=== PATIENT | male | born 1985 | race Caucasian/White ===

== ENCOUNTER → 2017-11-03 | Outpatient (CLI) | payer OTHER ==
[~2017-11-03] MED LIST: IOPAMIDOL (ISOVUE 370) 100 ML BTL IV ONE
== END ==
LOC: FIMAGING 11:45
PROVIDERS: ATTEND Surgery
DX: I87.9 Disorder of vein, unspecified (principal); Z86.718 Personal history of other venous thrombosis and embolism
CPT/HCPCS: Q9967

== ENCOUNTER 2017-12-12 12:00 | Inpatient (IN) | payer OTHER ==
--- NOTE | 2017-12-12 11:41 | PDHPUP ---
History & Physical Update H&P update statement: This history and physical update is based on an assessment of the patient which was completed after admission or registration (within 24 hours), but prior to the surgery/procedure. H&P update: H&P reviewed & patient examined, no change in patient's condition since H&P completed
[2017-12-12] MEDS ORDERED: LIDOCAINE 1% 2 ML INJ ID PRN (12:15)
[2017-12-12] MEDS ORDERED: LR 1,000 ML IV ONE (12:15)
[2017-12-12] MEDS ORDERED: MIDAZOLAM 2 MG/2 ML VIAL IVP ONE (13:37)
--- NOTE | 2017-12-12 13:39 | PDANEPAE ---
ANE History of Present Illness VATS, 1st rib resection ANE Past Medical History - Cardiovascular History Hx Hypertension: No Hx Arrhythmias: No Hx Chest Pain: No Hx Coronary Artery / Peripheral Vascular Disease: No Hx CHF / Valvular Disease: No Hx Palpitations: No Cardiovascular History Comment: DVT 09/2017 - Pulmonary History Hx COPD: No Hx Asthma/Reactive Airway Disease: No Hx Recent Upper Respiratory Infection: No Hx Oxygen in Use at Home: No Hx Sleep Apnea: No Sleep Apnea Screening Result - Last Documented: Negative - Neurologic History Hx Cerebrovascular Accident: No Hx Seizures: No Hx Dementia: No - Endocrine History Hx Diabetes: No - Renal History Hx Renal Disorders: No - Liver History Hx Hepatic Disorders: No - Neurological & Psychiatric Hx Hx Neurological and Psychiatric Disorders: No Neurological / Psychiatric History Comment: ANXIETY/INSOMNIA - Cancer History Hx Cancer: No - Congenital Disorder History Hx Congenital Disorders: No - GI History Hx Gastrointestinal Disorders: No Gastrointestinal History Comment: SL HIATAL HERNIA -MINOR HEARTBURN - Other Health History Other Health History: NEG - Chronic Pain History Chronic Pain: No - Surgical History Prior Surgeries: TONSILLECTOMY. VENOUS CATHETERIZATION ANE Review of Systems Review of systems is: negative Review of Systems: - Exercise capacity METS (RN): 5 METS ANE Patient History - Allergies Allergies/Adverse Reactions: No Known Allergies Allergy (Verified 10/03/17 13:33) - Home Medications Home medications: home medication list seen and reviewed Home Medications: Apixaban [Eliquis] 5 mg PO BID 11/24/17 [Last Taken 12/09/17] LORazepam [Ativan (*)] 0.5 mg PO DAILY PRN 11/24/17 [Last Taken 12/11/17] - NPO status NPO Since - Liquids (Date): 12/12/17 NPO Since - Liquids (Time): 08:00 NPO Since - Solids (Date): 12/11/17 NPO Since - Solids (Time): 22:00 - Anes Hx Anes Hx: no prior problems - Smoking Hx Smoking Status: Former smoker - Family Anes Hx Family Anes Hx: none Family Hx Anesthesia Complications: NEG ANE Labs/Vital Signs - Vital Signs Vital Signs: reviewed preoperatively; see RN documention for details Blood Pressure: 141/97 Heart Rate: 93 Respiratory Rate: 12 O2 Sat (%): 97 Height: 160.02 cm Weight: 76.204 kg ANE Physical Exam - Airway Neck exam: FROM Mallampati Score: Class 1 Mouth exam: normal dental/mouth exam - Pulmonary Pulmonary: no respiratory distress - Cardiovascular Cardiovascular: regular rate and rhythym - ASA Status ASA Status: II ANE Anesthesia Plan Anesthesia Plan: general endotracheal anesthesia Specialized Airway: double lumen tube
[2017-12-12] MEDS ORDERED: BUPIVACAINE/EPI 0.5% 30 ML SDV ONE (13:43)
[2017-12-12] MEDS ORDERED: TALC 3 GM INTRAPLEURAL VIAL ONE (13:44)
[2017-12-12] MEDS ORDERED: LIDOCAINE 2% 100 MG/5 ML SYR ONE (13:49)
[2017-12-12] MEDS ORDERED: ONDANSETRON 4 MG/2 ML VIAL ONE (13:49)
[2017-12-12] MEDS ORDERED: ROCURONIUM 50 MG/5 ML VIAL ONE ×2 (13:49→18:10)
[2017-12-12] MEDS ORDERED: DEXAMETHASONE 4 MG/ML VIAL ONE (13:49)
[2017-12-12] MEDS ORDERED: SUGAMMADEX SODIUM 200 MG/2 ML VIAL IVP ONE (13:49)
[2017-12-12] MEDS ORDERED: HYDROmorphONE/DILAUDID 2 MG/ML INJ ONE (13:50)
[2017-12-12] MEDS ORDERED: fentaNYL 100 MCG/2 ML INJ ONE ×2 (13:50→18:55)
[2017-12-12] MEDS ORDERED: PROPOFOL 200 MG/20 ML VIAL ONE (13:50)
--- NOTE | 2017-12-12 13:52 | POSTOPPROG ---
<Shira Sawyer - Last Filed: 12/12/17 13:49> Post Op Note Date of Operation: 12/12/17 Surgeon: Noam Stark Property Controller: Iftikhar James Anesthesiologist: Kelton Quintero Anesthesia: GET(General Endotracheal) Pre-op Diagnosis: Thoracic outlet syndrome Post-op Diagnosis: same Procedure: VATS first rib resection Inf/Abcess present in the surg proc area at time of surgery?: No EBL: Minimal Complications: no immediate Drains: Other (Right chest tube) <Noam Stark - Last Filed: 12/12/17 18:14> Post Op Note Date of Operation: 12/12/17 Surgeon: Noam Stark Procedure: right VATS first rib resection Drains: Other Specimen(s): rib
[2017-12-12] MEDS ORDERED: KETOROLAC 30 MG/1 ML SDV ONE (15:15)
[2017-12-12] MEDS ORDERED: ONDANSETRON 4 MG/2 ML VIAL IVP PRN (16:01)
[2017-12-12] MEDS ORDERED: oxyCODONE IR 5 MG TAB PO PRN (16:01)
[2017-12-12] MEDS ORDERED: MEPERIDINE 25 MG/0.5 ML AMP IVP PRN (16:01)
[2017-12-12] MEDS ORDERED: HYDROCODONE/APAP 5/325 TAB PO PRN (16:01)
[2017-12-12] MEDS ORDERED: HYDROmorphONE/DILAUDID 2 MG/ML INJ IVP PRN (16:01)
[2017-12-12] MEDS ORDERED: PROMETHAZINE HCL 25 MG/ML INJ IVP PRN (16:01)
[2017-12-12] MEDS ORDERED: ACETAMINOPHEN 500 MG TAB PO PRN (16:01)
[2017-12-12] MEDS ORDERED: fentaNYL 100 MCG/2 ML INJ IVP PRN (16:01)
[2017-12-12] MEDS ORDERED: NALOXONE HCL 0.4 MG/ML INJ IVP PRN (16:01)
[2017-12-12] MEDS ORDERED: DEXAMETHASONE 4 MG/ML VIAL IVP PRN (16:01)
--- NOTE | 2017-12-12 16:03 | POSTANESTH ---
Post Anesthetic Evaluation Cardiovascular Status: Normal, Stable, Similar to Pre-Op Cond Respiratory Status: Normal, Stable Level of Consciousness/Mental Status: Can Participate in Eval Pain Control: Adequate, Prn Tx Ordered Nausea/Vomiting Control: Adequate, Prn Tx Ordered Complications Possibly Related to Anesthesia: None Noted
[2017-12-12] MEDS ORDERED: oxyCODONE IR 15 MG TAB PO PRN (18:14)
[2017-12-12] MEDS ORDERED: LORazepam 0.5 MG TAB PO PRN (18:17)
[2017-12-12] MEDS ORDERED: HYDROmorphONE/DILAUDID 1 MG/ML INJ ONE (18:55)
[2017-12-12] MEDS: ONDANSETRON 4 MG/2 ML VIAL IVP PRN ×2 (19:39→23:56)
[2017-12-12] MEDS: HYDROmorphONE/DILAUDID 2 MG/ML INJ IVP PRN (22:37)
[2017-12-13] MEDS: HYDROmorphONE/DILAUDID 2 MG/ML INJ IVP PRN ×2 (03:29→06:09)
--- NOTE | 2017-12-13 06:59 | GOP ---
DATE OF OPERATION: 12/12/2017 SURGEON: Noam Stark MD INTERIOR DESIGN COORDINATOR: Iftikhar James MD ANESTHESIA: General. ANESTHESIOLOGIST: Dr. Quintero. 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 PROCEDURE PERFORMED: Right video-assisted thoracoscopic 1st rib resection. FINDINGS: INDICATIONS: A 32-year-old male previously admitted with an axillosubclavian vein thrombosis. He un derwent a prior thrombolysis with clot dissolution. He was maintained on Eliquis therapy. Further w orkup disclosed findings consistent with venous thoracic outlet syndrome. He is undergoing a surgica l decompression at this time. Risks and benefits were explained including bleeding, infection, open conversion, recurrent stenosis, need for additional venous intervention, recurrent DVT, nerve injury, open conversion, as well as others. All questions were answered. He desires to proceed. DESCRIPTION OF PROCEDURE: General anesthesia was induced. Double-lumen tube was placed. The patien t was placed in the left lateral decubitus position, being careful to pad all pressure points. Three thorascopic trocars were placed just anterior to the tip of the scapula, upper anterior axial line, as well as the lower mid axillary line. The lung had nicely collapsed with deflation. The 1st rib w as identified using electrocautery. The parietal pleura rather was opened allowing for initial ident ification. The rib was scored both superiorly and inferiorly using electrocautery starting medial an d working lateral. The subclavius muscle as well as anterior scalene muscles were all away from the superior aspect of the rib border. The inferior aspect of the border was further dissected out, allowing for the subclavian artery to be easily released. Significant time was spent separatin g the venous anatomy from the underside of the rib as this space was intimately tethered. The rib wa s further dissected around its C-loop, coursing posteriorly where the pleural dissection terminated. A curved clamp was able to be passed around the anterior aspect of the rib at which point an electri c bur was used to divide the rib at this location. A significant additional time was spent using bon e cutters to peel the rib back toward the sternoclavicular joint as well as posteriorly just beyond t he subclavian artery. Dissection was not taken further posteriorly. The artery and vein were noted to be completely decompressed after rib removal. Excellent hemostasis was assured. A 24-Congolese ches t tube was placed at the apex of the lung. The lung was expanded under direct visualization. The tr ocars were removed. The wounds were closed with absorbable suture followed by Dermabond. The patien t was extubated in the operating room, taken to recovery in good condition. /[id number]/MODL
[2017-12-13 08:05] VITALS: BP 117/81
[2017-12-13] MEDS: ONDANSETRON 4 MG/2 ML VIAL IVP PRN (08:52)
[2017-12-13] MEDS ORDERED: oxyCODONE IR 5 MG TAB PO PRN (09:30)
--- NOTE | 2017-12-14 18:14 | SOAPPROG ---
SOAP Progress Note Assessment/Plan: Assessment/Plan: Doing well. 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 Chest tube removed today. Wound care discussed. D/c to home. Prescription for pain medication provided. Follow up in office 2 weeks. 12/14/17 18:41 Subjective: Delayed entry for 12/13/17: POD #1 s/p VATS right first rib resection. Minimal pain. States last night he had right eye ptosis and miosis. No chest pain or shortness of breath. No arm numbness or weakness. Objective: Vital Signs Temp Pulse Resp BP Pulse Ox 36.8 C 85 16 117/81 H 92 12/13/17 08:00 12/13/17 08:00 12/13/17 08:00 12/13/17 08:00 12/13/17 08:00 12/13/17 12/14/17 12/15/17 05:59 05:59 05:59 Intake Total 1100 Output Total 475 55 Balance 625 -55 Physical Exam: General: appears comfortable, afebrile HEENT: no notable ptosis or miosis Skin: normal Chest: right chest tube dynamic without air leak, minimal serosanguineous drainage Heart: RRR Lungs: CTA bilateral, good air entry Abdomen: soft, nondistended, nontender Extremities: no upper extremity numbness or weakness ICD10 Worksheet Patient Problems: Problems Problem Status Onset Deep venous thrombosis of right upper extremity Acute
--- NOTE | 2017-12-15 14:16 | PDMN ---
Medical Necessity Medical necessity: MCG: thoracic sgy 1 day INPT only OP: R 1st rib resection AUTH# [id number] APPROVED FOR CPT 43804, 21484 DONE INPT LOS 1
--- NOTE | 2017-12-15 17:25 | GDS ---
PROCEDURE DATE: 12/12/2017. PROCEDURE: Video-assisted right 1st rib resection. DISCHARGE SUMMARY: Patient is a 32-year-old male who underwent a video- assisted right 1st rib resection on 12/12/2017. He had an uncomplicated postoperative course. He stayed overnight in the hospital with no concerns. 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 This was likely from spinal nerve block and has since resolved. No chest pain or shortness of breath. Normal upper extremity range of motion. Pain well managed. His chest tube was removed prior to discharge. Wound care discussed. He will discharge to home. Prescription provided for pain medication. He will follow up in the office in 2 weeks. /[id number]/MODL MTDD
== END 2017-12-13 09:43 | disposition home or self-care (01) | DRG 41 ==
LOC: F3N 12:00 → F3E 15:49
PROVIDERS: ADMIT Surgery; ATTEND Surgery
PROC: 01N Peripheral Nervous System, Release (ICD-10-PCS; principal; 2017-12-12 13:45)
DX: G54.0 Brachial plexus disorders (principal); I82.890 Acute embolism and thrombosis of other specified veins; G90.2 Horner's syndrome; F41.9 Anxiety disorder, unspecified
CPT/HCPCS: J1100; J1170; J1885; J2001; J2250; J2405; J2704; J3010

== ENCOUNTER → 2018-01-08 | Outpatient (CLI) | payer OTHER | LOC: CIMAGING 16:47 | PROVIDERS: ATTEND Family Medicine | DX: R07.81 Pleurodynia (principal); Z82.49 Family history of ischemic heart disease and other diseases of the circulatory system; Z86.718 Personal history of other venous thrombosis and embolism | CPT/HCPCS: 71101-PO ==

== ENCOUNTER → 2018-01-24 | Day surgery (SDC) | payer OTHER ==
[~2018-01-24] MED LIST changes: -IOPAMIDOL (ISOVUE 370) 100 ML BTL IV ONE; +IOPAMIDOL (ISOVUE-300) 100 ML BTL ONE; +LIDOCAINE 1% 300 MG/30 ML SDV ONE
== END | disposition home or self-care (01) ==
LOC: FIMAGING 10:13
PROVIDERS: ATTEND Radiology Diagnostic Radiology
PROC: B54MZZA Ultrasonography of Right Upper Extremity Veins, Guidance (ICD-10-PCS; principal; 2018-01-24)
DX: I82.621 Acute embolism and thrombosis of deep veins of right upper extremity (principal)
CPT/HCPCS: J1644; Q9967

== ENCOUNTER 2018-02-14 09:09 | Day surgery (SDC) | payer OTHER ==
[2018-02-14 10:55] LABS: INR 1.03 (0.83-1.16); PROTIME(PATIENT) 13.7 SEC (12.0-15.0)
[2018-02-14] MEDS ORDERED: NALOXONE HCL 0.4 MG/ML INJ ONE (11:04)
[2018-02-14] MEDS ORDERED: FLUMAZENIL 0.5 MG/5 ML MDV IVP ONE (11:04)
[2018-02-14] MEDS ORDERED: MIDAZOLAM 2 MG/2 ML VIAL ONE (11:04)
[2018-02-14] MEDS ORDERED: fentaNYL 100 MCG/2 ML INJ ONE (11:04)
[2018-02-14] MEDS ORDERED: ALTEPLASE 2 MG VIAL IVP PRN (12:11)
[2018-02-14] MEDS ORDERED: MIDAZOLAM 2 MG/2 ML VIAL IVP PRN (12:11)
[2018-02-14] MEDS ORDERED: FLUMAZENIL 0.5 MG/5 ML MDV IVP PRN (12:11)
[2018-02-14] MEDS ORDERED: HEPARIN 10,000 UNIT/10 ML MDV (1,000 UNIT/ML) IVP PRN (12:11)
[2018-02-14] MEDS ORDERED: MEPERIDINE 25 MG/ML SYR IVP PRN (12:11)
[2018-02-14] MEDS ORDERED: fentaNYL 100 MCG/2 ML INJ IVP PRN (12:11)
[2018-02-14] MEDS ORDERED: NALOXONE HCL 0.4 MG/ML INJ IVP PRN (12:11)
[2018-02-14] MEDS ORDERED: PROTAMINE SULFATE 50 MG/5 ML VIAL IVP PRN (12:11)
[2018-02-14] MEDS ORDERED: GLUCAGON HCL 1 MG VIAL IVP PRN (12:11)
[2018-02-14] MEDS ORDERED: NS 1,000 ML IV SCH (12:15)
[2018-02-14 12:34] VITALS: BP 115/70
[2018-02-14] MEDS ORDERED: ONDANSETRON 4 MG/2 ML VIAL IVP PRN (12:39)
[2018-02-14] MEDS ORDERED: OXYCODONE/APAP 5/325 TAB PO PRN (12:39)
--- NOTE | 2018-02-14 12:41 | PDPROPOC ---
Sedation Plan of Care Sedation Plan of Care: vital signs stable, mental status noted, patient educated of risks, benefits, alternatives, patient can tolerate sedation ASA Classification: ASA 2 Planned drugs: fentanyl, midazolam Mallampati Score: Class 2 Mallampati Reference Image: Patient passed 3-3-2 rule?: Yes
--- NOTE | 2018-02-14 12:42 | PDRADPRE ---
Radiology History & Physical Indication for procedure: other (Subclavian stenosis - angiogram with possible angioplasty) Home medications: Gabapentin 400 mg PO TID 02/12/18 [Last Taken Unknown] Allergies/Adverse Reactions: No Known Allergies Allergy (Verified 10/03/17 13:33) Mental status: A&Ox3 Heart exam: regular rate and rhythm Lungs exam: clear to auscultation Mallampati Score: Class 2
--- NOTE | 2018-02-14 12:44 | PDRADPN ---
Radiology Procedure Note Date of Procedure: 02/14/18 Radiologist: Clayton Eckert Anesthesia: IV Sedation Pre-op Diagnosis: Subclavian stenosis/thoracic inlet stenosis s/p surgery Post-op Diagnosis: Subclavian stenosis/thoracic inlet stenosis s/p surgery Indication: Persistent stensosis in subclavian vein Procedure: subclavian angiogram with angioplasty Finding(s): Significant collaterals and duplicated subclavian veins centrally, stenosis and collaterals resolved with angioplasty. Inf/Abcess present in the surg proc area at time of surgery?: No
[2018-02-14] MEDS ORDERED: IOPAMIDOL (ISOVUE-300) 100 ML BTL ONE (13:02)
== END 2018-02-14 14:26 | disposition home or self-care (01) ==
LOC: FIMAGING 09:09
PROVIDERS: ATTEND Surgery
PROC: 037 Upper Arteries, Dilation (ICD-10-PCS; principal; 2018-02-14)
DX: I77.1 Stricture of artery (principal); I82.890 Acute embolism and thrombosis of other specified veins; G54.0 Brachial plexus disorders
CPT/HCPCS: 37246; 75820; 76937; 99153; C1769; C1894; C2628; J1644; J2250; J2310; J3010; Q9967